=== PATIENT | female | born 1975 | race Caucasian/White ===

== ENCOUNTER 2016-09-19 22:54 | Emergency (ER) | payer MEDICARE ==
[~2016-09-19] VITALS: Ht 162.6 cm; Wt 63.6 kg
[~2016-09-19 22:54] MED LIST: ADVIL200 MG PO; ASCRIPTIN1 TA1 PO; ASPIRIN E.C. 8181 MG PO; ASTRAMORPH PO; BUSPAR10 MG PO; DILANTIN 100MG100 MG PO; DILAUDID 4MG TAB4 MG PO; FIORICET W/CODE1 CA1 PO; FLEXERIL 1010 MG/TAB PO; INDERAL 20MG20 MG PO; KEPPRA 500MG500 MG PO; KLONOPIN 0.5MG0.5 MG PO; KLONOPIN WAFERS1 MG PO; LAMICTAL 25MG T25 MG PO; LAMICTAL XR25 MG PO; LORTAB 5/500 501 TAB PO; MEDROL 4MG DOSPA4 MG PO; MORPHINE 1515 MG/TAB PO; MS CONTIN 115 MG/TAB PO; MYSOLINE 250MG250 MG PO; NAPROSYN500 MG PO; NITROSTAT0.4 MG/TAB SL; NORCO 325 MG-51 TAB PO; NORCO 325 MG-7.1 TAB PO; OXECTA7.5 MG PO; PERCOCET 325 MG1 TA2 PO; PRILOSEC 20MG20 MG PO; PROAIR HFA0.09 MG/AC IH; PROMETHAZINE12.5 M5 PO; PROPANOLOL PO; PROVENTIL0.09 MG/A1 IH; ROBAXIN 50500 MG/TAB PO; ROXICODONE 55 MG/TAB PO; TEGRETOL 1100 MG/TAB PO; ULTRAM 50MG TAB50 MG PO; XANAX .25M0.25 MG/TA PO; XANAX 0.5MG0.5 MG PO; ZESTRIL 10MG10 MG PO; ZOCOR 20MG20 MG PO; ZOFRAN ODT4 MG PO; ZOFRAN ODT8 MG PO; ZOFRAN8 MG PO
[2016-09-19 22:57] VITALS: TEMP 97.7
[2016-09-19 23:34] LABS: BASO % 0.3 % (0.0-2.0); GRAN # 8.5 (1.4-6.5); GRAN % 73.3 % (42.2-75.2); HEMATOCRIT 42.4 % (37.0-47.0); HEMOGLOBIN 14.5 g/dl (12.5-16.0); LYMPH # 2.3 (1.2-3.4); LYMPH % 19.5 % (20.0-51.0); MEAN CELL VOLUME 84 fl (80.0-100.0); MEAN CORPUSCULAR HEMOGLOBIN 29 pg (27.0-31.0); MEAN CORPUSCULAR HGB CONC 34 g/dl (33.0-37.0); MONO # 0.8 (0.1-0.6); MONO % 6.6 % (1.7-9.3); PLATELET COUNT 223 K/mm3 (130-400); RED BLOOD COUNT 5.08 M/mm3 (4.10-5.30); REDCELL DISTRIBUTION WIDTH-CV 14.1 % (11.5-14.5); WHITE BLOOD COUNT 11.5 K/mm3 (4.8-10.8)
[2016-09-19 23:46] LABS: ADJUSTED CALCIUM 9.7 mg/dL (8.4-10.2); ALANINE AMINOTRANSFERASE 32 U/L (9-52); ALBUMIN 4.4 gm/dL (3.5-5.0); ALKALINE PHOSPHATASE 85 U/L (50-136); ANION GAP 15 mmol/L (7-16); BILIRUBIN,TOTAL 0.7 mg/dL (0.0-1.0); BLOOD UREA NITROGEN 15 mg/dL (7-17); CARBON DIOXIDE 23 mmol/L (22-30); CHLORIDE 102 mmol/L (98-107); CREATININE, serum 0.73 mg/dL (0.52-1.25); GLUCOSE 119 mg/dL (74-106); POTASSIUM 3.8 mmol/L (3.4-5.0); SODIUM 140 mmol/L (137-145); TOTAL PROTEIN 7.6 gm/dL (6.4-8.2)
[2016-09-19 23:58] LABS: TROPONIN-I < 0.012 ng/mL (0.000-0.034)
[2016-09-20] MEDS ORDERED: PREDNISONE20 MG PO (01:14)
[2016-09-20 01:27] VITALS: BP 145/85; PULSE 79
== END 2016-09-20 01:27 | disposition home or self-care (01) ==
LOC: COL.ER 22:54
PROVIDERS: Nurse Practitioner
DX: R51 Headache (principal); J40 Bronchitis, not specified as acute or chronic; F17.210 Nicotine dependence, cigarettes, uncomplicated
CPT/HCPCS: J1200; J1885; J2765; J7030; J7512